=== PATIENT | male | born 1960 | race Two or more races ===

== ENCOUNTER → 2018-12-09 | Outpatient (CLI) | payer OTHER | END | disposition home or self-care (01) | LOC: SPEC 11:09 → EEVIPCON 11:09 | DX: I10 Essential (primary) hypertension (principal); E78.5 Hyperlipidemia, unspecified | CPT/HCPCS: 36415; 84484 ==

== ENCOUNTER → 2019-09-15 | Outpatient (CLI) | payer OTHER | END | disposition home or self-care (01) | LOC: EEVIPCON 13:07 → SPEC 13:07 | PROVIDERS: ATTEND Nurse Practitioner Family | DX: E86.0 Dehydration (principal) | CPT/HCPCS: 36415 ==